=== PATIENT | male | born 1950 | race American Indian/Alaskan Native ===

== ENCOUNTER 2019-11-03 17:06 | Inpatient (IN) | payer MEDICARE, OTHER ==
[~2019-11-03 17:06] MED LIST: DOPamine/D5W 800 MG/250 ML DRIP IV ONE; EPINEPHrine 1 MG/10 ML SYRINGE ONE; LIDOCAINE PF 100 MG/5 ML (CARDIAC SYRINGE) IV ONE; LIDOCAINE/D5W 2 GM/500 ML (0.4%) DRIP IV ONE; SODIUM BICARB 8.4% 50 MEQ/50 ML SYRINGE IV ONE
[2019-11-03] MEDS: LIDOCAINE DRIP 2,000 MG/500 ML BAG IV SCH (17:11)
[2019-11-03] MEDS: DOPamine/D5W 800 MG/250 ML 800 MG/250 ML BAG IV SCH (17:20)
[2019-11-03] MEDS ORDERED: NORepinephrine/NS 4 MG-250 ML 4 MG/250 ML BAG IV ONE (17:28)
[2019-11-03] MEDS ORDERED: HEPARIN 10,000 UNITS/10 ML VIAL IV ONE (17:29)
[2019-11-03] MEDS ORDERED: ASPIRIN 300 MG RECT SUPP PR ONE (17:30)
[2019-11-03] MEDS: NORepinephrine/NS 4 MG-250 ML 4 MG/250 ML BAG IV SCH (17:32)
--- NOTE | 2019-11-03 17:43 | Emergency Department Report ---
HPI - General PUI?: No Time Seen by Provider: 11/03/19 17:28 - HPI HPI: Room 22 The patient is a 69-year-old male present with a chief complaint of cardiac arrest. Per the patient's the patient was found lying on the ground by his son. EMS was called immediately and bystander CPR initiated. EMS arrived on scene at 16:30 to find the patient in V. fib arrest. ACLS protocols were initiated. Patient was defibrillated multiple times administered epi, amiodarone 300 mg IV and intubated. EMS states that they had a brief return of spontaneous circulation however upon arrival to the ED the patient was again found in V. fib. ACLS protocols were continued with eventual return of spontaneous circulation. ED Past Medical Hx - Past Medical History Previous Medical History?: Yes Hx Hypertension: Yes Hx Heart Attack/AMI: Yes (2008. One stent placed) Additional medical history: Hyperlipidemia - Surgical History Additional Surgical History: Cardiac stent placement - Family History Family history: no significant - Social History Smoking Status: Unknown if ever smoked ED Review of Systems ROS: Stated complaint: CARDIAC ARREST Other details as noted in HPI Comment: Unobtainable due to pts medical conditions Physical Exam - Physical Exam Vital Signs: Vital Signs 11/03/19 17:28 Pulse Rate 96 H Respiratory 21 Rate O2 Sat by Pulse 96 Oximetry Physical Exam: GENERAL: The patient is well-developed well-nourished male lying on stretcher receiving chest compressions from EMS and being bagged via ET tube. [] HEENT: Normocephalic. Atraumatic. Pupils 3 mm and nonreactive bilaterally NECK: Supple. Trachea midline CHEST/LUNGS: No spontaneous respirations. Breath sounds greater on the right side upon arrival. ET tube pulled back to 24 at the lips and breath sounds equal bilaterally HEART/CARDIOVASCULAR: No heart sounds. ABDOMEN: Abdomen is soft SKIN: There is no rash. There is no edema. There is no diaphoresis. NEURO: GCS 3 T MUSCULOSKELETAL: There is no evidence of acute injury. ED Course Vital Signs 11/03/19 17:28 Pulse Rate 96 H Respiratory 21 Rate O2 Sat by Pulse 96 Oximetry - Consultations Consultation #1: 11/03/19 15:22 ED EKG sent to and discussed with Dr. Araya. Code STEMI called Consultation #2: 11/03/19 18:03 Hospitalist paged ED Medical Decision Making - Lab Data Result diagrams: 11/03/19 17:41 Laboratory Tests 11/03/19 11/03/19 11/03/19 17:41 17:41 17:41 WBC 6.6 RBC 5.58 H Hgb 14.8 Hct 50.0 H MCV 90 MCH 27 L MCHC 30 L RDW 18.2 H Plt Count 102 L 119 L Lymph % (Auto) Strategic Planning Director PT 16.3 H INR 1.30 H - EKG Data -: EKG Interpreted by Me EKG shows normal: sinus rhythm Rate: normal - EKG Data When compared to previous EKG there are: previous EKG unavailable Interpretation: acute [place] - Radiology Data Radiology results: report reviewed (Chest x-ray #1), image reviewed (Chest x-ray #1, chest x-ray #2) interpreted by me: Chest x-ray #1-ET tube right mainstem. No focal infiltrates, no pneumothorax Chest x-ray #2-ET tube in appropriate position Findings [facility] [address] [place] [address] XRay Report Signed Patient: GIULIANA LAM MR#: [id number] : 1950 Acct:[id number] Age/Sex: 69 / M ADM Date: 11/03/19 Loc: ED Attending Dr: Ordering Physician: FELIZ ACOSTA MD Date of Service: 11/03/19 Procedure(s): XR chest 1V ap Accession Number(s): [id number] cc: FELIZ ACOSTA MD Fluoro Time In Minutes: CHEST 1 VIEW INDICATION / CLINICAL INFORMATION: MAIN: chest pain/ETT. C OMPARISON: None available. FINDINGS: SUPPORT DEVICES: The endotracheal tube is at the level of the alireza and should be pulled back several centimeters. Nasogastric tube is in satisfactory. HEART / MEDIASTINUM: Mild enlargement of the cardiac mediastinal silhouette. Pulmonary vascularity is prominent in the upper lungs. LUNGS / PLEURA: No significant pulmonary or pleural abnormality. No pneumothorax. ADDITIONAL FINDINGS: No significant additional findings. IMPRESSION: 1. Low position of the endotracheal tube. 2. Cardiomegaly and pulmonary venous hypertension. Signer Name: Santo Toledo MD Signed: 11/03/2019 5:46 PM Workstation Name: [id number] Transcribed By: SC Dictated By: Santo Toledo MD Electronically Authenticated By: Santo Toeldo MD Signed Date/Time: 11/03/191745 DD/ 44 TD/TT: - Differential Diagnosis STEMI Critical Care Time: Yes Critical care time in (mins) excluding proc time.: 30 Critical care attestation.: If time is entered above; I have spent that time in minutes in the direct care of this critically ill patient, excluding procedure time. ED Disposition Clinical Impression: STEMI (ST elevation myocardial infarction) Disposition: DC-[id number] OP ADMIT IP TO THIS HOSP Is pt being admited?: Yes Does the pt Need Aspirin: Yes Condition: Critical Time of Disposition: 17:45 (Awaiting Commercial Food Instructor)
--- NOTE | 2019-11-03 17:50 | XRay Report ---
CHEST 1 VIEW INDICATION / CLINICAL INFORMATION: MAIN: chest pain/ETT. COMPARISON: None available. FINDINGS: SUPPORT DEVICES: The endotracheal tube is at the level of the alireza and should be pulled back severa l centimeters. Nasogastric tube is in satisfactory. HEART / MEDIASTINUM: Mild enlargement of the cardiac mediastinal silhouette. Pulmonary vascularity is prominent in the upper lungs. LUNGS / PLEURA: No significant pulmonary or pleural abnormality. No pneumothorax. ADDITIONAL FINDINGS: No significant additional findings. IMPRESSION: 1. Low position of the endotracheal tube. 2. Cardiomegaly and pulmonary venous hypertension. Signer Name: Santo Toledo MD Signed: 11/03/2019 5:46 PM Workstation Name: [id number]
[2019-11-03 17:51] LABS: Mean Corpuscular HGB Conc 30 % (32-34); Mean Corpuscular Volume 90 fl (84-94); Platelet Count 102 K/mm3 (140-440); Red Blood Count 5.58 M/mm3 (3.65-5.03); Red Cell Distribution Width 18.2 % (13.2-15.2)
[2019-11-03 17:56] LABS: Hemoglobin 14.8 gm/dl (11.8-15.2)
[2019-11-03] MEDS ORDERED: HEPARIN/ 0.45% NACL DRIP 25,000 UNIT/500 ML BAG IV SCH (18:00)
[2019-11-03 18:07] LABS: INR 1.3 (0.87-1.13)
[2019-11-03 18:08] LABS: ABG Base Excess -11.3 mmol/L (-2.0-3.0); ABG HCO3 21.3 mmol/L (20.0-26.0); ABG Methemoglobin 0.3 % (0.0-1.5); ABG Oxygen Saturation 97.4 % (95.0-99.0); ABG PCO2 83.8 mm Hg; ABG PO2 126.1 mm Hg (80.0-90.0)
[2019-11-03] MEDS ORDERED: HEPARIN/NS 5000 UNIT/500ML 500 ML IR ONE (18:08)
[2019-11-03] MEDS ORDERED: HEPARIN 10,000 UNITS/10 ML VIAL ONE (18:08)
[2019-11-03] MEDS ORDERED: VERAPAMIL 5 MG/2 ML INJ ONE (18:08)
[2019-11-03 18:09] LABS: Partial Thromboplastin Time 44.1 Sec. (24.2-36.6)
[2019-11-03] MEDS ORDERED: NITROGLYCERIN SYRINGE 0 ML ONE (18:09)
[2019-11-03] MEDS ORDERED: LIDOCAINE (2%) 20 MG/1 ML VIAL 20 ML MDV INFILTRATI ONE (18:09)
[2019-11-03 18:11] LABS: ABG PH 7.023 pH Units (7.350-7.450)
--- NOTE | 2019-11-03 18:11 | XRay Report ---
CHEST 1 VIEW INDICATION / CLINICAL INFORMATION: ET tube repositioned. COMPARISON: 11/03/2019 and 1719 hours FINDINGS: SUPPORT DEVICES: The endotracheal tube has been retracted and is now in satisfactory position. Nasogastric tube is in stomach HEART / MEDIASTINUM: No significant abnormality. LUNGS / PLEURA: There is now ill-defined opacity in the right upper lung, possibly due to aspiration. No pneumothorax. ADDITIONAL FINDINGS: No significant additional findings. IMPRESSION: 1. Right upper lobe opacity, possible aspiration pneumonitis. Signer Name: Santo Toledo MD Signed: 11/03/2019 6:06 PM Workstation Name: [id number]
[2019-11-03] MEDS ORDERED: fentaNYL 100 MCG/2 ML INJ ONE (18:15)
[2019-11-03] MEDS ORDERED: MIDAZOLAM 2 MG/2 ML INJ ONE (18:15)
[2019-11-03 18:19] LABS: Creatine Kinase MB 18.2 ng/mL (0.0-4.0)
[2019-11-03 18:20] LABS: Calcium 8.2 mg/dL (8.4-10.2)
--- NOTE | 2019-11-03 18:33 | History and Physical Report ---
History of Present Illness Chief complaint: I found him lying on the ground History of present illness: 69 YO Male with HTN, WI, CAD S/P Stent Placement, HLD presents to ED for evaluation. The patient is intubated and on ventilatory support at the time of my evaluation and is unable to provide history. Patient history provided by and son and daughter who are at the bedside during exam and interview. As per family, the patient was in his usual state of health today. The patient was walking around outside and was found lying on the ground by his son. EMS was notified while the family initiated CPR therapy. Upon arrival the patient was found to be in V. fib arrest. Patient initiated on ACLS protocol with brief return of perfusing rhythm. Patient was coded multiple times in route to the ER. Patient arrived to the emergency department in V. fib arrest. Patient initiated on ACLS protocol with return of perfusing rhythm. Patient found to have evidence of ST elevation WI, as well as acute respiratory failure which resulted in cardiopulmonary arrest. Patient also found to have acute kidney injury, and metabolic acidosis. Upon neurologic exam patient was found to have clinical findings consistent with anoxic brain injury. The cardiac cath team was called in. Family care planning conducted in ED. Patient elects not to have cardiac catheterization and requests only supportive care. The cardiac cath team was dismissed. The patient was admitted to ICU. Critical care team consult placed. Patient found to have poor prognosis. Patient family acknowledges prognosis and request supportive continue supportive care. Patient family acknowledges understanding and agreement with care plan. No prior admission for review. No medication listed at time of admission for reconciliation. Past History Past Medical History: acute [place], CAD, hypertension Past Surgical History: Other (Cardiac stent placement) Social history: , lives with family Family history: CAD, hypertension Medications and Allergies Allergies Allergy/AdvReac Type Severity Reaction Status Date / Time Unable to Assess Allergy Verified 11/03/19 19:16 Active Meds: Active Medications Heparin Sodium/Sodium Chloride (Heparin/ 0.45% Nacl-25,000 Unit/500 Ml) 25,000 unit in 500 mls @ 20 mls/hr IV TITRATE MAY; Protocol Last Admin: 11/03/19 17:56 Dose: 1,000 units/hr, 20 mls/hr Documented by: Sodium Chloride (Sodium Chloride Flush Syringe 10 Ml) 10 ml IV BID MAY Sodium Chloride (Sodium Chloride Flush Syringe 10 Ml) 10 ml IV PRN PRN PRN Reason: LINE FLUSH Review of Systems ROS unobtainable: due to endotracheal tube, due to mental status Exam - Constitutional Vitals: Temp Pulse Resp BP Pulse Ox 126 H 21 98/66 98 11/03/19 17:45 11/03/19 17:28 11/03/19 17:45 11/03/19 17:45 General appearance: Present: severe distress, obese - EENT Eyes: Present: irregular pupil, mydriasis ENT: hearing decreased - Respiratory Respiratory effort: labored Respiratory: bilateral: diminished - Cardiovascular Heart Sounds: Present: S1 & S2. Absent: rub, click - Extremities Extremity abnormal: edema Peripheral Pulses: within normal limits - Abdominal General gastrointestinal: Present: soft, non-tender, non-distended, normal bowel sounds Male genitourinary: Present: normal - Integumentary Integumentary: Present: clear, dry, clammy, decreased turgor - Musculoskeletal Musculoskeletal: generalized weakness - Psychiatric Psychiatric: no appropriate mood/affect, no intact judgment & insight, no memory intact - Neurologic Neurologic: no CNII-XII intact, no gait normal HEART Score - HEART Score Troponin: Troponin T 0.093 ng/mL (0.00-0.029) H 11/03/19 17:58 Results - Labs CBC & Chem 7: 11/03/19 17:41 11/03/19 17:58 Labs: Abnormal lab results 11/03/19 11/03/19 11/03/19 Range/Units 17:41 17:41 17:41 RBC 5.58 H (3.65-5.03) M/mm3 Hct 50.0 H (35.5-45.6) % MCH 27 L (28-32) pg MCHC 30 L (32-34) % RDW 18.2 H (13.2-15.2) % Plt Count 102 L 119 L (140-440) K/mm3 PT 16.3 H (12.2-14.9) Sec. INR 1.30 H (0.87-1.13) APTT 44.1 H (24.2-36.6) Sec. ABG pH (7.350-7.450) pH Units ABG pO2 (80.0-90.0) mm Hg ABG Base Excess (-2.0-3.0) mmol/L Sodium (137-145) mmol/L Carbon Dioxide (22-30) mmol/L Creatinine (0.8-1.5) mg/dL Glucose (75-100) mg/dL Calcium (8.4-10.2) mg/dL Total Creatine Kinase (55-170) units/L CK-MB (CK-2) (0.0-4.0) ng/mL Troponin T (0.00-0.029) ng/mL 11/03/19 11/03/19 Range/Units 17:58 18:05 RBC (3.65-5.03) M/mm3 Hct (35.5-45.6) % MCH (28-32) pg MCHC (32-34) % RDW (13.2-15.2) % Plt Count (140-440) K/mm3 PT (12.2-14.9) Sec. INR (0.87-1.13) APTT (24.2-36.6) Sec. ABG pH 7.023 L* (7.350-7.450) pH Units ABG pO2 126.1 H (80.0-90.0) mm Hg ABG Base Excess -11.3 L (-2.0-3.0) mmol/L Sodium 146 H (137-145) mmol/L Carbon Dioxide 18 L (22-30) mmol/L Creatinine 2.2 H (0.8-1.5) mg/dL Glucose 288 H (75-100) mg/dL Calcium 8.2 L (8.4-10.2) mg/dL Total Creatine Kinase 776 H (55-170) units/L CK-MB (CK-2) 18.2 H (0.0-4.0) ng/mL Troponin T 0.093 H (0.00-0.029) ng/mL Assessment and Plan - Patient Problems (1) Acute hypoxemic respiratory failure Current Visit: Yes Status: Acute Plan to address problem: Patient is intubated and on vent support. Wean vent as tolerated, spontaneous breathing trial daily, ABG in a.m., sedation holiday, critical care team consulted in ED. The high probability of a clinically significant, sudden or life threatening deterioration of the [cardiac, pulmonary, renal, neurologic] system(s) required my full and direct attention, intervention and personal management. The aggregate critical care time was [95] minutes. This time is in addition to time spent performing reported procedures but includes the following: [x] Data Review and interpretation [x] Patient assessment and monitoring of vital signs [x] Documentation [x] Medication orders and management (2) STEMI (ST elevation myocardial infarction) Current Visit: Yes Status: Acute Plan to address problem: Cardiology consult placed in ED. Patient was pending emergent cardiac catheterization. Patient experienced an additional cardiac arrest prior to transfer to [facility]. A family meeting was held with the patient's who elects to forego cardiac catheterization, but to continue current level of care. Risks and benefits of cardiac catheterization were explained to family. Patient determines that the risks of cardiac catheterization outweigh the risk. We will continue current critical care management. Cardiology team consulted in ED. continue therapeutic heparin (3) Cardiac arrest Current Visit: Yes Status: Acute Plan to address problem: Patient treated in accordance with ACLS protocol with return of perfusing cardiac rhythm. Pain recurrent patient currently maintained on IV pressor support (4) Anoxic brain injury Current Visit: Yes Status: Acute Plan to address problem: Suspected due to clinical findings on exam. Will conduct brain imaging when if/when patient is medically stable. (5) Acute kidney injury (WALTER) with acute tubular necrosis (ATN) Current Visit: Yes Status: Acute Plan to address problem: IV fluid resuscitation therapy, monitor urine output every shift, repeat BMP in a.m. (6) Metabolic acidosis Current Visit: Yes Status: Acute Plan to address problem: IV bicarbonate therapy, supportive care. Repeat BMP in a.m. (7) DVT prophylaxis Current Visit: Yes Status: Acute Plan to address problem: SCD to bilateral lower extremities while in bed, continue therapeutic heparin. (8) Advance care planning Current Visit: Yes Status: Acute Plan to address problem: Patient is full code, disease education conducted. Patient family acknowledges understanding poor prognosis and agrees with current care plan. Patient declines cardiac cath. Patient requests continued supportive care. Patient currently intubated and on IV pressor support. Patient request continuation of current level of support without further cardiac intervention.
--- NOTE | 2019-11-03 18:37 | Event Note ---
Date: 11/03/19 PT developed Cardiopulmonary arrest while I was at bedside. PT treated IAW ACLS protocol with return of perfusing cardiac rhythm. Pt has poor prognosis as the risk and benefit of cardiac cath has been discussed with patient and family. Pt elects to forego further cardiac intervention and declines cardiac cath. Pt family also in agreement.
[2019-11-03 19:21] LABS: RBC Morphology Normal; Total Cells Counted 100
[2019-11-03] MEDS ORDERED: SODIUM BICARB 8.4% 50 MEQ/50 ML SYRINGE IV ONE (19:49)
[2019-11-04] MEDS: DOPamine/D5W 800 MG/250 ML 800 MG/250 ML BAG IV SCH ×2 (00:09→08:43)
--- NOTE | 2019-11-04 00:47 | Consultation ---
CARDIOLOGY CONSULTATION Please refer this letter to Dr. Acevedo. HISTORY OF PRESENT ILLNESS: The patient is a 69-year-old -[place] gentleman with history of hypertension, history of coronary stenting in 2007 at this hospital and history of hyperlipidemia, being followed by a nursing educator at [facility], was doing well without any symptoms. This evening, the patient was in the yard by himself and he was found on the ground by his son, he does not know how long he was there. The patient was unresponsive and the son came, found him on the ground. Paramedics were called and prolonged CPR including defibrillation 5 times done. Subsequently, he was intubated, brought to the Emergency Room and his blood pressure initially on dopamine and Levophed was 80 systolic, sinus tachycardia. EKG showed the sinus rhythm with ST elevations in the anterior leads consistent with anterolateral myocardial infarction. The patient was intubated. He was unresponsive in the Emergency Room, not responsive to painful stimuli. Pupils are dilated. Blood pressure 80 systolic, with sinus tachycardia at 130 beats per minute. Subsequently, a STEMI protocol was followed and a STEMI team was called in. When I went there to see the patient along with Dr. Thomas, the patient's family was there, discussed with them, explained the diagnosis of probable acute myocardial infarction leading to his cardiac arrest and prolonged cardiopulmonary arrest with underlying hypoxemia and anoxia to the brain. Presently, the patient is not responding. At this time, his brain functional status is not clear. I also explained to them the diagnosis of myocardial infarction and I explained the diagnosis of probable anoxic encephalopathy considering his underlying prolonged CPR in addition to the patient being down for unknown time. The patient and family wanted conservative treatment. However, in the meantime before can be taken to the catheterization laboratory, the patient arrested again during the CPR. Because of his prolonged CPR, it was decided to treat the patient conservatively. I had a long discussion with multiple family members. Dr. Yony Thomas is with me. I and both explained in detail to the patient's multiple family members. They do not want any aggressive measures at this time. PHYSICAL EXAMINATION: GENERAL: Showed the patient to be intubated, dilated pupils. NECK: Supple. Difficult to evaluate JVD. HEART: Regular. LUNGS: Clear. ABDOMEN: Benign. EXTREMITIES: Warm. FINAL IMPRESSION: Status post prolonged cardiopulmonary arrest, probably secondary to the anterolateral myocardial infarction, had prolonged downtime prior to starting the CPR and also he had prolonged CPR. Considering prolonged nature of the CPR, the patient most likely has underlying hypoxic, anoxic encephalopathy. The patient is still having CPR done in the Emergency Room. The patient's family including and daughter, son and sister decided to do conservative management in the ICU if he survives. Hence, a STEMI protocol was discontinued. STEMI team was here and team was dismissed. Overall, prognosis is grave. Dr. Thomas is in charge of the CPR at this point. JOB# [id number] RON/KURT NOLAND
[2019-11-04] MEDS: NORepinephrine/NS 4 MG-250 ML 4 MG/250 ML BAG IV SCH ×2 (02:12→09:55)
[2019-11-04 05:32] LABS: ABG Base Excess -10.8 mmol/L (-2.0-3.0); ABG HCO3 14.4 mmol/L (20.0-26.0); ABG Methemoglobin 0.3 % (0.0-1.5); ABG Oxygen Saturation 99.2 % (95.0-99.0); ABG PCO2 31.2 mm Hg; ABG PH 7.281 pH Units (7.350-7.450); ABG PO2 202.2 mm Hg (80.0-90.0)
[2019-11-04 05:58] LABS: Hematocrit 58.4 % (35.5-45.6); Hemoglobin 18.5 gm/dl (11.8-15.2); Mean Corpuscular HGB Conc 32 % (32-34); Mean Corpuscular Volume 83 fl (84-94); Platelet Count 191 K/mm3 (140-440); Red Blood Count 7.04 M/mm3 (3.65-5.03); Red Cell Distribution Width 17.3 % (13.2-15.2)
[2019-11-04 06:13] LABS: Alanine Aminotransferase 444 units/L (7-56); Albumin 4.4 g/dL (3.9-5); BUN/Creatinine Ratio 6; Blood Urea Nitrogen 28 mg/dL (9-20); Calcium 8.9 mg/dL (8.4-10.2)
--- NOTE | 2019-11-04 06:22 | XRay Report ---
ABDOMEN 1 VIEW(S) INDICATION / CLINICAL INFORMATION: Evaluation for possible GI bleed.. Pain COMPARISON: None available. FINDINGS: TUBES / LINES: Right femoral line noted.. BOWEL GAS PATTERN: No significant abnormality. FREE AIR / EXTRALUMINAL GAS: None seen. ADDITIONAL FINDINGS: No significant additional findings. IMPRESSION: 1. No significant abnormality. Signer Name: Von Huang MD Signed: 11/04/2019 6:17 AM Workstation Name: [id number]
--- NOTE | 2019-11-04 06:25 | XRay Report ---
CHEST 1 VIEW INDICATION / CLINICAL INFORMATION: Respirator Failure. COMPARISON: None available. FINDINGS: SUPPORT DEVICES: No significant change in position. HEART / MEDIASTINUM: The cardiomediastinal silhouette has not significantly changed in the interim. LUNGS / PLEURA: No significant pulmonary or pleural abnormality. No pneumothorax. Signer Name: Von Huang MD Signed: 11/04/2019 6:20 AM Workstation Name: [id number]
[2019-11-04] MEDS ORDERED: PANTOPRAZOLE 40 MG INJ IV NR (06:38)
[2019-11-04] MEDS: SODIUM CHLORIDE 0.9% 1000 ML 1,000 ML IV SCH ×2 (06:43→11:04)
[2019-11-04] MEDS ORDERED: SODIUM CHLORIDE 0.9% 1000 ML 500 ML IV ONE (07:30)
[2019-11-04] MEDS: LIDOCAINE DRIP 2,000 MG/500 ML BAG IV SCH (09:09)
--- NOTE | 2019-11-04 09:14 | Consultation ---
History of Present Illness Consult date: 11/04/19 Requesting physician: CRUZ LENNON History of present illness: HISTORY PER MEDICAL RECORDS DOCUMENTATION- ORALLY INTUBATED ON MVS, UNABLE TO PROVIDE A HISTORY 69 YO Male with HTN, NM, CAD S/P Stent Placement, HLD presents to ED for evaluation. The patient is intubated and on ventilatory support at the time of my evaluation and is unable to provide history. Patient history provided by and son and daughter who are at the bedside during exam and interview. As per family, the patient was in his usual state of health today. The patient was walking around outside and was found lying on the ground by his son. EMS was notified while the family initiated CPR therapy. Upon arrival the patient was found to be in V. fib arrest. Patient initiated on ACLS protocol with brief return of perfusing rhythm. Patient was coded multiple times in route to the ER. Patient arrived to the emergency department in V. fib arrest. Patient in itiated on ACLS protocol with return of perfusing rhythm. Patient found to have evidence of ST elevation [place], as well as acute respiratory failure which resulted in cardiopulmonary arrest. Patient also found to have acute kidney injury, and metabolic acidosis. Upon neurologic exam patient was found to have clinical findings consistent with anoxic brain injury. The cardiac cath team was called in. Family care planning conducted in ED. Patient elects not to have cardiac catheterization and requests only supportive care. The cardiac cath team was dismissed. The patient was admitted to ICU. Critical care team consult placed. Patient was seen and examined. Vitals, labs, medications, chart and imaging reviewed. Orally intubated on multiple infusions Dopamine at 20mcg, Norepinephrine at 30mcg, Lidocaine at 2. Coffee ground output from the NGT, apparently had bright red blood pe rectum heparin infusion was stopped. Anuric, Das catheter in place ACVC 24/450/8/40% ABG 7.3/30/202/14 Past History Past Medical History: acute NM, CAD, hypertension Past Surgical History: Other (Cardiac stent placement) Social history: , lives with family Family history: CAD, hypertension Medications and Allergies Allergies Allergy/AdvReac Type Severity Reaction Status Date / Time Unable to Assess Allergy Verified 11/03/19 19:16 Active Meds: Active Medications Heparin Sodium/Sodium Chloride (Heparin/ 0.45% Nacl-25,000 Unit/500 Ml) 25,000 unit in 500 mls @ 20 mls/hr IV TITRATE MAY; Protocol Last Titration: 11/04/19 05:20 Dose: 0 units/hr, 0 mls/hr Documented by: Dopamine HCl/Dextrose (Intropin Drip 800 Mg/D5w 250 Ml) 800 mg in 250 mls @ 17.813 mls/hr IV TITR MAY; Protocol Last Admin: 11/04/19 08:43 Dose: 20 mcg/kg/min, 35.625 mls/hr Documented by: Lidocaine HCl/Dextrose (Xylocaine/D5w 2gm/500ml Drip) 2,000 mg in 500 mls @ 30 mls/hr IV DIRECT MAY; Protocol Last Admin: 11/04/19 09:09 Dose: 2 mg/min, 30 mls/hr Documented by: Norepinephrine (Levophed Drip 4 Mg/Ns 250 Ml) 4 mg in 250 mls @ 22.5 mls/hr IV TITR MAY; Protocol Last Titration: 11/04/19 09:00 Dose: 20 mcg/min, 75 mls/hr Documented by: Sodium Chloride (Nacl 0.9% 1000 Ml) 1,000 mls @ 125 mls/hr IV DIRECT MAY Last Admin: 11/04/19 06:43 Dose: 125 mls/hr Documented by: Sodium Chloride (Sodium Chloride Flush Syringe 10 Ml) 10 ml IV BID MAY Sodium Chloride (Sodium Chloride Flush Syringe 10 Ml) 10 ml IV PRN PRN PRN Reason: LINE FLUSH Review of Systems ROS unobtainable: due to endotracheal tube, due to mental status Physical Examination Vital signs: Vital Signs Pulse BP Pulse Ox 94 H 84/45 97 11/03/19 17:22 11/03/19 17:22 11/03/19 17:22 General appearance: comatose, other (orally intubated ETT at 23cm at the lip, unresponsive) Eyes: non-icteric, other ([i) ENT: oropharynx dry Neck: supple, no lymphadenopathy, no JVD Effort: other (breathing at the set rate) Ascultation: Bilateral: diminished breath sounds, rhonchi Cardiovascular: regular rate and rhythm, other (S1,S2) Gastrointestinal: normoactive bowel sounds, soft, non-tender, non-distended, other (rectal tube with pink liquid, NGT coffee ground ) Integumentary: normal Extremities: no cyanosis, no edema, pulses normal unable to assess, other (unresponsive) other (unresponsive) Results - Laboratory Findings CBC and BMP: 11/04/19 05:30 11/03/19 17:58 ABG ABG pH 7.281 pH Units (7.350-7.450) L 11/04/19 05:15 ABG pCO2 31.2 mm Hg 11/04/19 05:15 ABG pO2 202.2 mm Hg (80.0-90.0) H 11/04/19 05:15 ABG O2 Saturation 99.2 % (95.0-99.0) H 11/04/19 05:15 PT/INR, D-dimer PT 16.3 Sec. (12.2-14.9) H 11/03/19 17:41 INR 1.30 (0.87-1.13) H 11/03/19 17:41 Abnormal lab findings: Abnormal Labs 11/03/19 11/03/19 11/03/19 17:41 17:41 17:41 WBC RBC 5.58 H Hgb Hct 50.0 H MCV MCH 27 L MCHC 30 L RDW 18.2 H Plt Count 102 L 119 L Seg Neuts % (Manual) 37.0 L Lymphocytes % (Manual) 56.0 H PT 16.3 H INR 1.30 H APTT 44.1 H Heparin Anti-Xa Level ABG pH ABG pO2 ABG HCO3 ABG O2 Saturation ABG Base Excess ABG Hemoglobin Sodium Carbon Dioxide BUN Creatinine Glucose POC Glucose Calcium AST ALT Total Creatine Kinase CK-MB (CK-2) Troponin T 11/03/19 11/03/19 11/03/19 17:58 18:05 23:35 WBC RBC Hgb Hct MCV MCH MCHC RDW Plt Count Seg Neuts % (Manual) Lymphocytes % (Manual) PT INR APTT Heparin Anti-Xa Level ABG pH 7.023 L* ABG pO2 126.1 H ABG HCO3 ABG O2 Saturation ABG Base Excess -11.3 L ABG Hemoglobin Sodium 146 H Carbon Dioxide 18 L BUN Creatinine 2.2 H Glucose 288 H POC Glucose 110 H Calcium 8.2 L AST ALT Total Creatine Kinase 776 H CK-MB (CK-2) 18.2 H Troponin T 0.093 H 11/04/19 11/04/19 11/04/19 00:40 05:15 05:30 WBC 16.2 H RBC 7.04 H Hgb 18.5 H D Hct 58.4 H D MCV 83 L MCH 26 L MCHC RDW 17.3 H Plt Count Seg Neuts % (Manual) Lymphocytes % (Manual) PT INR APTT Heparin Anti-Xa Level 0.23 L ABG pH 7.281 L ABG pO2 202.2 H ABG HCO3 14.4 L ABG O2 Saturation 99.2 H ABG Base Excess -10.8 L ABG Hemoglobin 18.2 H Sodium Carbon Dioxide BUN Creatinine Glucose POC Glucose Calcium AST ALT Total Creatine Kinase CK-MB (CK-2) Troponin T 11/04/19 05:30 WBC RBC Hgb Hct MCV MCH MCHC RDW Plt Count Seg Neuts % (Manual) Lymphocytes % (Manual) PT INR APTT Heparin Anti-Xa Level ABG pH ABG pO2 ABG HCO3 ABG O2 Saturation ABG Base Excess ABG Hemoglobin Sodium Carbon Dioxide 19 L BUN 28 H Creatinine 4.8 H D Glucose 144 H POC Glucose Calcium AST 883 H ALT 444 H Total Creatine Kinase CK-MB (CK-2) Troponin T - Diagnostic Findings Chest x-ray: image reviewed (ETT in good position, Cardiomegaly with realtively clear lung arboleda) Assessment and Plan S/p OOH Cardiopulmonary arrest with ROSC Vfib arrest Acute hypoxemic respiratory failure on MVS Acute toxic-metabolic- ?anoxic injury STEMI Acute GIB- upper and lower Severe metabolic acidosis/lactic acidosis Acute kidney injury- vasomotor nephropathy, ATN Hypernatremia Recommendations - continue Dopamine, Levophed for target MAP > 65 mmHg , add vasopressin and epinephrine to keep MAP >65 -adjust minute ventilation for better gas exchange- increased RR to 30 at the bedside -ABG in an hour -Place arterial-line - continue to wean supplemental oxygen for target O2 sats > 90% -Hold all sedation for proper evaluation of neurologic function post cardiac arrest - Daily SAT's and SBT assessment per protocol - VAP bundle addressed - continue lung protective strategies - continue bronchodilators with pulmonary hygiene per RT - accuchecks with glycemic control per SSI (While critically ill target blood glucose of 140-180 mg/dL; avoid hypoglycemia) - Avoid benzodiazepines, reduce the possibility of delirium - prn analgesia per CPOT score - Maintenance of sleep-wake cycle, avoid delirium -Remain NPO for now, has ongoing coffee ground NGT output -Star therapeutic PPI, adjust for renal function - VTE prophylaxis-SCDs, heparin infusion on hold, patient had GIB -Medical management of NSTEMI, per family preference - Mobility protocol, off loading and skin assessment for pressure ulcer prevent ion - Monitor hemodynamics closely -Das catheter in this critically ill patient with acute renal failure/anuria -Has a femoral triple lumen catheter. -Patient would have benefitted from hypothermia protocol post arrest -Neurology consult, defer primary service -Cardioprotective measures and management of STEMI per Cardiology service -Get transthoracic echocardiogram - continue other care per attending / other consultants Discussed with the , who wants me to reach out to his Storekeeper Helper, Dr. Jefferson Arguelles to help her make decisions on goals of care Called Dr. Arguelles [phone]. He will return my call Discussed with hospitalist service CONDITION: CRITICAL PROGNOSIS: GUARDED-POOR CODE STATUS: FULL CODE The high probability of a clinically significant, sudden or life-threatening deterioration of the [respiratory & cardiovascular] system(s) required my full and direct attention, intervention and personal management. The aggregate critical care time was [35] minutes without overlap. Time includes spent on; [x] Data Review and interpretation [x] Patient assessment and monitoring of vital signs [x] Documentation [x] Medication orders and management
--- NOTE | 2019-11-04 09:30 | Gastroenterology Consultation ---
History of Present Illness - Reason for Consult Consult date: 11/04/19 GI Bleed Requesting physician: AILEEN FISHER - History of Present Illness History obtained from chart as patient is unable to provide a history. I additionally tried calling the patient's spouse at the number listed, , however just rang and went to voicemail 69 YO Male with HTN, TX, CAD S/P Stent Placement, HLD presented to the emergency room after he was found lying on the ground by his son. EMS was notified while the family initiated CPR therapy. Upon arrival the patient was found to be in V. fib arrest. Patient initiated on ACLS protocol with brief return of perfusing rhythm. Patient was coded multiple times in route to the ER. Patient arrived to the emergency department in V. fib arrest. Patient initiated on ACLS protocol with return of perfusing rhythm. Patient found to have evidence of ST elevation [place], as well as acute respiratory failure which resulted in cardiopulmonary arrest. Patient also found to have acute kidney injury, and metabolic acidosis. Upon neurologic exam patient was found to have clinical findings consistent with anoxic brain injury. The cardiac cath team was called in. Family care planning conducted in ED. Patient elects not to have cardiac catheterization and requests only supportive care. The cardiac cath team was dismissed. The patient was admitted to ICU. Critical care team consult placed. Patient found to have poor prognosis. Patient was started on a heparin drip Patient had coffee grounds from his NG tube and dark red blood from his rectal output per nursing overnight, occult blood was positive. Heparin drip was stopped. Patient currently with thin red liquid from the rectal tube and brown output from the NG tube with no significant active bleeding Repeat CBC this morning shows elevated hemoglobin compared to presentation unclear if artifactual or hemoconcentration Remainder of GI history unknown Obtained/updated/reviewed patient's current medications with the limitations of patient unable to provide a history and unable to contact Past History Past Medical History: acute [place], CAD, hypertension Past Surgical History: Other (Cardiac stent placement) Social history: , lives with family Family history: CAD, hypertension Medications and Allergies Allergies Allergy/AdvReac Type Severity Reaction Status Date / Time Unable to Assess Allergy Verified 11/03/19 19:16 Active Meds: Active Medications Heparin Sodium/Sodium Chloride (Heparin/ 0.45% Nacl-25,000 Unit/500 Ml) 25,000 unit in 500 mls @ 20 mls/hr IV TITRATE MAY; Protocol Last Titration: 11/04/19 05:20 Dose: 0 units/hr, 0 mls/hr Documented by: Dopamine HCl/Dextrose (Intropin Drip 800 Mg/D5w 250 Ml) 800 mg in 250 mls @ 17.813 mls/hr IV TITR MAY; Protocol Last Admin: 11/04/19 08:43 Dose: 20 mcg/kg/min, 35.625 mls/hr Documented by: Lidocaine HCl/Dextrose (Xylocaine/D5w 2gm/500ml Drip) 2,000 mg in 500 mls @ 30 mls/hr IV DIRECT MAY; Protocol Last Admin: 11/04/19 09:09 Dose: 2 mg/min, 30 mls/hr Documented by: Norepinephrine (Levophed Drip 4 Mg/Ns 250 Ml) 4 mg in 250 mls @ 22.5 mls/hr IV TITR MAY; Protocol Last Titration: 11/04/19 09:15 Dose: 22 mcg/min, 82.5 mls/hr Documented by: Sodium Chloride (Nacl 0.9% 1000 Ml) 1,000 mls @ 125 mls/hr IV DIRECT MAY Last Admin: 11/04/19 06:43 Dose: 125 mls/hr Documented by: Sodium Chloride (Sodium Chloride Flush Syringe 10 Ml) 10 ml IV BID MAY Sodium Chloride (Sodium Chloride Flush Syringe 10 Ml) 10 ml IV PRN PRN PRN Reason: LINE FLUSH Review of Systems - Review of Systems ROS unobtainable: due to endotracheal tube, due to mental status Exam - Constitutional Vital Signs: Temp Pulse Resp BP Pulse Ox 99.4 F 110 H 24 76/56 96 11/04/19 08:00 11/04/19 08:00 11/04/19 08:00 11/04/19 08:00 11/04/19 08:00 General appearance: other (Intubated and unresponsive) - EENT Eyes: other - Respiratory Respiratory effort: other (Intubated, bilateral breath sounds) - Cardiovascular Heart Sounds: Present: S1 & S2 - Gastrointestinal General gastrointestinal: Present: soft - Musculoskeletal Musculoskeletal: normal - Neurologic Neurological: other (Unresponsive) - Psychiatric Psychiatric: other - Additional findings Additional findings: Unresponsive - Labs CBC & Chem 7: 11/04/19 05:30 11/03/19 17:58 Lab Results: Laboratory Results - last 24 hr 11/03/19 11/03/19 11/03/19 17:41 17:41 17:41 WBC 6.6 RBC 5.58 H Hgb 14.8 Hct 50.0 H MCV 90 MCH 27 L MCHC 30 L RDW 18.2 H Plt Count 102 L 119 L Lymph % (Auto) Nanny/Household Manager Add Manual Diff Complete Total Counted 100 Seg Neuts % (Manual) 37.0 L Band Neutrophils % 0 Lymphocytes % (Manual) 56.0 H Reactive Lymphs % (Man) 0 Monocytes % (Manual) 5.0 Eosinophils % (Manual) 1.0 Basophils % (Manual) 1.0 Metamyelocytes % 0 Myelocytes % 0 Promyelocytes % 0 Blast Cells % 0 Nucleated RBC % Not Reportable Seg Neutrophils # Man 2.4 Band Neutrophils # 0.0 Lymphocytes # (Manual) 3.7 Abs React Lymphs (Man) 0.0 Monocytes # (Manual) 0.3 Eosinophils # (Manual) 0.1 Basophils # (Manual) 0.1 Metamyelocytes # 0.0 Myelocytes # 0.0 Promyelocytes # 0.0 Blast Cells # 0.0 WBC Morphology Not Reportable Hypersegmented Neuts Not Reportable Hyposegmented Neuts Not Reportable Hypogranular Neuts Not Reportable Smudge Cells Not Reportable Toxic Granulation Not Reportable Toxic Vacuolation Not Reportable Dohle Bodies Not Reportable Pelger-Huet Anomaly Not Reportable Pedrito Rods Not Reportable Platelet Estimate Not Reportable Clumped Platelets Not Reportable Plt Clumps, EDTA Not Reportable Large Platelets Not Reportable Giant Platelets Not Reportable Platelet Satelliting Not Reportable Plt Morphology Comment Not Reportable RBC Morphology Normal Dimorphic RBCs Not Reportable Polychromasia Not Reportable Hypochromasia Not Reportable Poikilocytosis Not Reportable Anisocytosis Not Reportable Microcytosis Not Reportable Macrocytosis Not Reportable Spherocytes Not Reportable Pappenheimer Bodies Not Reportable Sickle Cells Not Reportable Target Cells Not Reportable Tear Drop Cells Not Reportable Ovalocytes Not Reportable Helmet Cells Not Reportable Valero-Alcolu Bodies Not Reportable Creighton Rings Not Reportable Lasha Cells Not Reportable Bite Cells Not Reportable Crenated Cell Not Reportable Elliptocytes Not Reportable Acanthocytes (Spur) Not Reportable Rouleaux Not Reportable Hemoglobin C Crystals Not Reportable Schistocytes Not Reportable Malaria parasites Not Reportable Pedro Bodies Not Reportable Hem Pathologist Commnt No PT 16.3 H INR 1.30 H APTT 44.1 H Heparin Anti-Xa Level ABG pH ABG pCO2 ABG pO2 ABG HCO3 ABG O2 Saturation ABG O2 Content ABG Base Excess ABG Hemoglobin ABG Carboxyhemoglobin ABG Methemoglobin Oxyhemoglobin FiO2 Sodium Potassium Chloride Carbon Dioxide Anion Gap BUN Creatinine Estimated GFR BUN/Creatinine Ratio Glucose POC Glucose Calcium Total Bilirubin AST ALT Alkaline Phosphatase Total Creatine Kinase CK-MB (CK-2) CK-MB (CK-2) Rel Index Troponin T NT-Pro-B Natriuret Pep Total Protein Albumin Albumin/Globulin Ratio Blood Type Antibody Screen 11/03/19 11/03/19 11/03/19 17:58 18:05 23:35 WBC RBC Hgb Hct MCV MCH MCHC RDW Plt Count Lymph % (Auto) Add Manual Diff Total Counted Seg Neuts % (Manual) Band Neutrophils % Lymphocytes % (Manual) Reactive Lymphs % (Man) Monocytes % (Manual) Eosinophils % (Manual) Basophils % (Manual) Metamyelocytes % Myelocytes % Promyelocytes % Blast Cells % Nucleated RBC % Seg Neutrophils # Man Band Neutrophils # Lymphocytes # (Manual) Abs React Lymphs (Man) Monocytes # (Manual) Eosinophils # (Manual) Basophils # (Manual) Metamyelocytes # Myelocytes # Promyelocytes # Blast Cells # WBC Morphology Hypersegmented Neuts Hyposegmented Neuts Hypogranular Neuts Smudge Cells Toxic Granulation Toxic Vacuolation Dohle Bodies Pelger-Huet Anomaly Pedrito Rods Platelet Estimate Clumped Platelets Plt Clumps, EDTA Large Platelets Giant Platelets Platelet Satelliting Plt Morphology Comment RBC Morphology Dimorphic RBCs Polychromasia Hypochromasia Poikilocytosis Anisocytosis Microcytosis Macrocytosis Spherocytes Pappenheimer Bodies Sickle Cells Target Cells Tear Drop Cells Ovalocytes Helmet Cells Valero-Alcolu Bodies Creighton Rings Lasha Cells Bite Cells Crenated Cell Elliptocytes Acanthocytes (Spur) Rouleaux Hemoglobin C Crystals Schistocytes Malaria parasites Pedro Bodies Hem Pathologist Commnt PT INR APTT Heparin Anti-Xa Level ABG pH 7.023 L* ABG pCO2 83.8 ABG pO2 126.1 H ABG HCO3 21.3 ABG O2 Saturation 97.4 ABG O2 Content 19.7 ABG Base Excess -11.3 L ABG Hemoglobin 14.6 ABG Carboxyhemoglobin 2.1 ABG Methemoglobin 0.3 Oxyhemoglobin 95.1 FiO2 100 Sodium 146 H Potassium 5.0 Chloride 101.8 Carbon Dioxide 18 L Anion Gap 31 BUN 16 Creatinine 2.2 H Estimated GFR 36 BUN/Creatinine Ratio 7 Glucose 288 H POC Glucose 110 H Calcium 8.2 L Total Bilirubin AST ALT Alkaline Phosphatase Total Creatine Kinase 776 H CK-MB (CK-2) 18.2 H CK-MB (CK-2) Rel Index 2.3 Troponin T 0.093 H NT-Pro-B Natriuret Pep 544.0 Total Protein Albumin Albumin/Globulin Ratio Blood Type Antibody Screen 11/04/19 11/04/19 11/04/19 00:40 05:15 05:30 WBC 16.2 H RBC 7.04 H Hgb 18.5 H D Hct 58.4 H D MCV 83 L MCH 26 L MCHC 32 RDW 17.3 H Plt Count 191 Lymph % (Auto) Add Manual Diff Total Counted Seg Neuts % (Manual) Band Neutrophils % Lymphocytes % (Manual) Reactive Lymphs % (Man) Monocytes % (Manual) Eosinophils % (Manual) Basophils % (Manual) Metamyelocytes % Myelocytes % Promyelocytes % Blast Cells % Nucleated RBC % Seg Neutrophils # Man Band Neutrophils # Lymphocytes # (Manual) Abs React Lymphs (Man) Monocytes # (Manual) Eosinophils # (Manual) Basophils # (Manual) Metamyelocytes # Myelocytes # Promyelocytes # Blast Cells # WBC Morphology Hypersegmented Neuts Hyposegmented Neuts Hypogranular Neuts Smudge Cells Toxic Granulation Toxic Vacuolation Dohle Bodies Pelger-Huet Anomaly Pedrito Rods Platelet Estimate Clumped Platelets Plt Clumps, EDTA Large Platelets Giant Platelets Platelet Satelliting Plt Morphology Comment RBC Morphology Dimorphic RBCs Polychromasia Hypochromasia Poikilocytosis Anisocytosis Microcytosis Macrocytosis Spherocytes Pappenheimer Bodies Sickle Cells Target Cells Tear Drop Cells Ovalocytes Helmet Cells Valero-Alcolu Bodies Creighton Rings Lasha Cells Bite Cells Crenated Cell Elliptocytes Acanthocytes (Spur) Rouleaux Hemoglobin C Crystals Schistocytes Malaria parasites Pedro Bodies Hem Pathologist Commnt PT INR APTT Heparin Anti-Xa Level 0.23 L ABG pH 7.281 L ABG pCO2 31.2 ABG pO2 202.2 H ABG HCO3 14.4 L ABG O2 Saturation 99.2 H ABG O2 Content 25.2 ABG Base Excess -10.8 L ABG Hemoglobin 18.2 H ABG Carboxyhemoglobin 2.0 ABG Methemoglobin 0.3 Oxyhemoglobin 96.9 FiO2 60 Sodium Potassium Chloride Carbon Dioxide Anion Gap BUN Creatinine Estimated GFR BUN/Creatinine Ratio Glucose POC Glucose Calcium Total Bilirubin AST ALT Alkaline Phosphatase Total Creatine Kinase CK-MB (CK-2) CK-MB (CK-2) Rel Index Troponin T NT-Pro-B Natriuret Pep Total Protein Albumin Albumin/Globulin Ratio Blood Type Antibody Screen 11/04/19 11/04/19 05:30 06:15 WBC RBC Hgb Hct MCV MCH MCHC RDW Plt Count Lymph % (Auto) Add Manual Diff Total Counted Seg Neuts % (Manual) Band Neutrophils % Lymphocytes % (Manual) Reactive Lymphs % (Man) Monocytes % (Manual) Eosinophils % (Manual) Basophils % (Manual) Metamyelocytes % Myelocytes % Promyelocytes % Blast Cells % Nucleated RBC % Seg Neutrophils # Man Band Neutrophils # Lymphocytes # (Manual) Abs React Lymphs (Man) Monocytes # (Manual) Eosinophils # (Manual) Basophils # (Manual) Metamyelocytes # Myelocytes # Promyelocytes # Blast Cells # WBC Morphology Hypersegmented Neuts Hyposegmented Neuts Hypogranular Neuts Smudge Cells Toxic Granulation Toxic Vacuolation Dohle Bodies Pelger-Huet Anomaly Pedrito Rods Platelet Estimate Clumped Platelets Plt Clumps, EDTA Large Platelets Giant Platelets Platelet Satelliting Plt Morphology Comment RBC Morphology Dimorphic RBCs Polychromasia Hypochromasia Poikilocytosis Anisocytosis Microcytosis Macrocytosis Spherocytes Pappenheimer Bodies Sickle Cells Target Cells Tear Drop Cells Ovalocytes Helmet Cells Valero-Alcolu Bodies Creighton Rings Lasha Cells Bite Cells Crenated Cell Elliptocytes Acanthocytes (Spur) Rouleaux Hemoglobin C Crystals Schistocytes Malaria parasites Pedro Bodies Hem Pathologist Commnt PT INR APTT Heparin Anti-Xa Level ABG pH ABG pCO2 ABG pO2 ABG HCO3 ABG O2 Saturation ABG O2 Content ABG Base Excess ABG Hemoglobin ABG Carboxyhemoglobin ABG Methemoglobin Oxyhemoglobin FiO2 Sodium 145 Potassium 4.4 Chloride 101.1 Carbon Dioxide 19 L Anion Gap 29 BUN 28 H Creatinine 4.8 H D Estimated GFR 15 BUN/Creatinine Ratio 6 Glucose 144 H POC Glucose Calcium 8.9 Total Bilirubin 0.90 AST 883 H ALT 444 H Alkaline Phosphatase 82 Total Creatine Kinase CK-MB (CK-2) CK-MB (CK-2) Rel Index Troponin T NT-Pro-B Natriuret Pep Total Protein 6.9 Albumin 4.4 Albumin/Globulin Ratio 1.8 Blood Type O POSITIVE Antibody Screen Negative Assessment and Plan Patient currently hypotensive despite being on multiple pressors, with suspected anoxic brain injury and multiorgan failure. With the heparin held he is not having significant GI bleeding. Therefore, given patient is at extreme risk for complication and/or from a endoscopic procedure and he is not actively bleeding out, risks of endoscopic intervention outweighs the benefits. Therefore, I recommend starting patient on a proton pump inhibitor as he likely has an upper GI source given the reported coffee grounds in the NG tube Lower GI sources in the differential diagnosis as well however. Therefore, regarding anticoagulation, and less he is very high risk to be off of anticoagulation I would recommend continuing to hold anticoagulation and monitoring clinically Overall prognosis appears to be extremely limited - Patient Problems (1) GI bleed Current Visit: Yes Status: Acute (2) Anoxic brain injury Current Visit: Yes Status: Acute (3) Cardiac arrest Current Visit: Yes Status: Acute
[2019-11-04] MEDS ORDERED: PANTOPRAZOLE 40 MG INJ IV SCH (10:00)
[2019-11-04] MEDS ORDERED: VASOPRESSIN 20 UNIT in SODIUM CHLORIDE 0.9% 100 ML IV SCH (10:00)
--- NOTE | 2019-11-04 10:00 | Consultation ---
History of Present Illness - Reason for Consult Consult date: 11/04/19 acute renal failure - History of Present Illness This is a 69 year old male patient with pmh significant for hypertension, IN, CAD s/p stent placement, hyperlipidemia who presented to the ED via EMS after being found on the ground by his son at home. Prior to the incident, pt was in his usual state of health. It is unknown how long pt was down prior to discovery. Per ED notes, pt was found to be unresponsive and family members initiated CPR until EMS arrival. Upon arrival, EMS found pt to be in V. Fib arrest but had brief return of perfusing rhythm after ACL. Unfortunately patient coded multiple times while en route to the ED and was again in V. fib upon arrival to the ED. He was found to have evidence of STEMI, acute kidney injury, acute respiratory failure resulting in cardiac arrest, metabolic acidosis. Pt had neuro exam with findings consistent with anoxic brain injury. He was intubated and found to have very poor prognosis. Pt declined cardiac cath and understood prognosis and plan of care as reported by primary team. He was placed on heparin drip but began actively bleeding as evidenced by coffee ground in NG tube and dark red blood from rectal output. Heparin drip was stopped and pt no longer had any evidence of significant active bleeding. GI was consulted for bleed and pt started on PPI. At time of consultation he remains unresponsive and intubated. In addition, pt has had persistent hypotension and at time of exam was on three pressors. Labs on admission significant for sodium 146, bicarb 18, creatinine 2.2, glucose 288, calcium 8.2, total CK 776, troponin 0.093. At time of consultation, labs significant for bicarb 19, BUN 28, creatinine 4.8, glucose 144, AST 883, ALT 444. Nephrology was consulted for further evaluation and treatment. Past History Past Medical History: acute IN, CAD, hypertension Past Surgical History: Other (Cardiac stent placement) Social history: , lives with family Family history: CAD, hypertension Medications and Allergies Allergies Allergy/AdvReac Type Severity Reaction Status Date / Time Unable to Assess Allergy Verified 11/03/19 19:16 Home Medications Medication Instructions Recorded Confirmed Last Taken Type Aspirin EC [Halfprin EC] 81 mg PO QDAY 11/04/19 11/04/19 11/02/19 21:00 History Nitroglycerin [Nitrostat] 0.4 mg SL Q5M PRN 11/04/19 11/04/19 Unknown History Rosuvastatin Calcium [Crestor] 20 mg PO DAILY 11/04/19 11/04/19 11/02/19 19:00 History lisinopriL [Zestril] 20 mg PO QDAY 11/04/19 11/04/19 11/02/19 21:00 History Active Meds: Active Medications Heparin Sodium/Sodium Chloride (Heparin/ 0.45% Nacl-25,000 Unit/500 Ml) 25,000 unit in 500 mls @ 20 mls/hr IV TITRATE MAY; Protocol Last Titration: 11/04/19 05:20 Dose: 0 units/hr, 0 mls/hr Documented by: Dopamine HCl/Dextrose (Intropin Drip 800 Mg/D5w 250 Ml) 800 mg in 250 mls @ 17.813 mls/hr IV TITR MAY; Protocol Last Admin: 11/04/19 08:43 Dose: 20 mcg/kg/min, 35.625 mls/hr Documented by: Lidocaine HCl/Dextrose (Xylocaine/D5w 2gm/500ml Drip) 2,000 mg in 500 mls @ 30 mls/hr IV DIRECT MAY; Protocol Last Admin: 11/04/19 09:09 Dose: 2 mg/min, 30 mls/hr Documented by: Norepinephrine (Levophed Drip 4 Mg/Ns 250 Ml) 4 mg in 250 mls @ 22.5 mls/hr IV TITR MAY; Protocol Last Titration: 11/04/19 09:30 Dose: 24 mcg/min, 90 mls/hr Documented by: Sodium Chloride (Nacl 0.9% 1000 Ml) 1,000 mls @ 125 mls/hr IV DIRECT MAY Last Admin: 11/04/19 06:43 Dose: 125 mls/hr Documented by: Vasopressin 20 unit/ Sodium (Chloride) 101 mls @ 9.09 mls/hr IV TITR MAY; Protocol Pantoprazole Sodium (Protonix) 40 mg IV BID MAY Sodium Chloride (Sodium Chloride Flush Syringe 10 Ml) 10 ml IV BID MAY Sodium Chloride (Sodium Chloride Flush Syringe 10 Ml) 10 ml IV PRN PRN PRN Reason: LINE FLUSH Review of Systems ROS unobtainable: due to mental status Exam - Vital Signs Vital signs: Vital Signs Pulse BP Pulse Ox 94 H 84/45 97 11/03/19 17:22 11/03/19 17:22 11/03/19 17:22 - General Appearance General appearance: well-developed, appears stated age, obese, intubated, other (NGT, turcios present) EENT: mucous membranes dry, other (pupils fixed and nonreactive) Neck: Present: neck supple, trachea midline Respiratory: Ronchi (scattered bilateral lung arboleda), Other (mechanical breath sounds) Heart: regular, S1S2, no murmurs Gastrointestinal: Present: normal, normoactive bowel sounds, obese. Absent: distended, masses, organomegaly Integumentary: no rash, cool/clammy Neurologic: other (unresponsive, unable to assess) Musculoskeletal: Absent: deformities, cyanosis Psychiatric: other (unresponsive) Results - Lab Results 11/04/19 Unknown 11/04/19 11:20 Most recent lab results ABG pH 7.281 pH Units (7.350-7.450) L 11/04/19 05:15 ABG pCO2 31.2 mm Hg 11/04/19 05:15 ABG pO2 202.2 mm Hg (80.0-90.0) H 11/04/19 05:15 ABG HCO3 14.4 mmol/L (20.0-26.0) L 11/04/19 05:15 ABG O2 Saturation 99.2 % (95.0-99.0) H 11/04/19 05:15 Calcium 8.9 mg/dL (8.4-10.2) 11/04/19 05:30 Assessment and Plan 1. Acute kidney injury: Likely vasomotor WALTER in the setting of persistent hypotension and cardiac arrest. Pt baseline is unknown. Creatinine on admission was 2.2 has now worsened to 4.8. Now on multiple pressors 2/2 persistent hypotension. Has turcios catheter with no urinary output up to point of consultation. Continue IV fluids. Monitor renal function. Renal prognosis is guarded. Avoid nephrotoxic agents. 2. FEN: Mild hypernatremia, mild, monitor. Metabolic acidosis, monitor. Monitor lytes and volume status. 3. S/p Cardiopulmonary arrest: Had multiple episodes of cardiac arrest. Initial arrest was OOH with unknown down time. Cards consulted. 4. Anoxic brain injury: Neuro consulted. 5. Acute hypoxemic respiratory failure: Intubated on vent. Not sedated, unresponsive. Pulmonary following. 6. S/p V. Fib arrest: Cards following. 7. STEMI: Family declined cardiac cath. Awaiting outpatient cardio input as requested by family. Cards following. 8. Acute GI bleed: Heparin drip d/c 2/2 to signs of active bleed. On PPI. GI following. 9. Hypotension: On multiple pressors. Monitor BP closely. 10. H/o CAD s/p stent:
--- NOTE | 2019-11-04 10:08 | Progress Note ---
Assessment and Plan Patient had coffee grounds from his NG tube and dark red blood from his rectal output per nursing overnight, occult blood was positive. Heparin drip was stopped. Patient currently with thin red liquid from the rectal tube and brown output from the NG tube with no significant active bleeding. GI evaluation in progress. Okay to hold heparin gtt from cardiac perspective in setting of GI bleed. Cont conservative cardiac measures as agreed upon by pt's family members given suspected anoxic brain injury and overall poor prognosis. Obtain echo. Recommend neurology consultation per primary team. The patient has been seen in conjunction with Dr. Araya who agrees with the assessment and plan of care. - Patient Problems (1) Cardiopulmonary arrest Current Visit: Yes Status: Acute (2) Ventricular fibrillation Current Visit: Yes Status: Acute (3) Anoxic brain injury Current Visit: Yes Status: Suspected (4) STEMI (ST elevation myocardial infarction) Current Visit: Yes Status: Acute (5) CAD (coronary artery disease) Current Visit: Yes Status: Chronic (6) Stented coronary artery Current Visit: Yes Status: Chronic (7) WALTER (acute kidney injury) Current Visit: Yes Status: Acute (8) GI bleed Current Visit: Yes Status: Acute Subjective Date of service: 11/04/19 Principal diagnosis: cardiac arrest Interval history: pt remains intubated, unresponsive, not sedated. on dopamine and levophed gtt. in ST on tele HR 110s. Objective Last Vital Signs Temp 99.4 F 11/04/19 08:00 Pulse 116 H 11/04/19 09:45 Resp 13 11/04/19 09:45 BP 89/55 11/04/19 09:45 Pulse Ox 92 11/04/19 09:45 - Physical Examination General: Other (intubated, unresponsive, not sedated) Cardiac: Positive: Regular Rhythm, S1/S2 Lungs: Positive: Decreased Breath Sounds, Oxygen, Ventilated Respirations Neuro: Positive: Other (intubated, unresponsive, not sedated) Abdomen: Negative: Tender Skin: Negative: Rash Extremities: Absent: edema - Labs and Meds Cardiac Enzymes 11/03/19 11/04/19 Range/Units 17:58 05:30 AST 883 H (5-40) units/L CK-MB (CK-2) 18.2 H (0.0-4.0) ng/mL Coagulation 11/03/19 Range/Units 17:41 PT 16.3 H (12.2-14.9) Sec. INR 1.30 H (0.87-1.13) APTT 44.1 H (24.2-36.6) Sec. CBC 11/03/19 11/03/19 11/04/19 Range/Units 17:41 17:41 05:30 WBC 6.6 16.2 H (4.5-11.0) K/mm3 RBC 5.58 H 7.04 H (3.65-5.03) M/mm3 Hgb 14.8 18.5 H D (11.8-15.2) gm/dl Hct 50.0 H 58.4 H D (35.5-45.6) % Plt Count 102 L 119 L 191 (140-440) K/mm3 Comprehensive Metabolic Panel 11/03/19 11/04/19 Range/Units 17:58 05:30 Sodium 146 H 145 (137-145) mmol/L Potassium 5.0 4.4 (3.6-5.0) mmol/L Chloride 101.8 101.1 (98-107) mmol/L Carbon Dioxide 18 L 19 L (22-30) mmol/L BUN 16 28 H (9-20) mg/dL Creatinine 2.2 H 4.8 H D (0.8-1.5) mg/dL Glucose 288 H 144 H (75-100) mg/dL Calcium 8.2 L 8.9 (8.4-10.2) mg/dL AST 883 H (5-40) units/L ALT 444 H (7-56) units/L Alkaline Phosphatase 82 (35-129) units/L Total Protein 6.9 (6.3-8.2) g/dL Albumin 4.4 (3.9-5) g/dL - Imaging and Cardiology EKG: report reviewed, image reviewed Echo: pending - Telemetry EKG Rhythm: Sinus Tachycardia
[2019-11-04] MEDS ORDERED: DOPamine/D5W 800 MG/250 ML DRIP IV ONE (11:00)
[2019-11-04] MEDS ORDERED: MAGNESIUM SULFATE 1 GM/2ML (4 MEQ/1ML) INJ ONE (11:00)
[2019-11-04] MEDS ORDERED: CALCIUM CHLORIDE 1,000 MG/10 ML SYRINGE IV ONE (11:00)
[2019-11-04] MEDS ORDERED: DEXTROSE 50% IN WATER (25GM) 50 ML SYRINGE IV ONE (11:00)
[2019-11-04] MEDS ORDERED: AMIODARONE 900 MG/18 ML IV ONE (11:00)
[2019-11-04] MEDS ORDERED: SODIUM BICARB 8.4% 50 MEQ/50 ML SYRINGE IV ONE (11:00)
[2019-11-04] MEDS ORDERED: EPINEPHrine 1 MG/1 ML 8 MG in SODIUM CHLORIDE 0.9% 250ML 242 ML IV SCH (11:00)
[2019-11-04] MEDS ORDERED: EPINEPHrine 1 MG/10 ML SYRINGE ONE (11:00)
--- NOTE | 2019-11-04 11:29 | Event Note ---
Date: 11/04/19 Cardiopulmonary arrest x2 with ROSC See code blue documentation for details ABG, Labs sent. 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 Discussed with primary service
[2019-11-04 11:39] LABS: ABG Base Excess -18.6 mmol/L (-2.0-3.0); ABG HCO3 12.1 mmol/L (20.0-26.0); ABG Methemoglobin 0.1 % (0.0-1.5); ABG Oxygen Saturation 99.5 % (95.0-99.0); ABG PH 7.02 pH Units (7.350-7.450); ABG PO2 390.7 mm Hg (80.0-90.0)
--- NOTE | 2019-11-04 11:42 | XRay Report ---
CHEST 1 VIEW 1120 hours INDICATION: chest pain/recently coded. COMPARISON: Earlier today at 0535 hours FINDINGS: Support devices: Stable and adequate positioning of the endotracheal tube and nasogastric tube. Heart: Within normal limits. Lungs/Pleura: The left lung apex is cut off the [id number]. No infiltrate, pleural fluid or pneumo thorax is detected. Additional findings: None. IMPRESSION: No acute process. No change since earlier today at 0535 hours. Signer Name: Monty Cuevas Jr, MD Signed: 11/04/2019 11:37 AM Workstation Name: [id number]
--- NOTE | 2019-11-04 11:44 | Event Note ---
Date: 11/04/19 Cardiac arrest x4 please see code sheet for details Spoke with and spoke with Dr Arguelles Patient requested for DNR during 4th cardiac arrest Patient was pronounced 11:38 am Cause of : Cardiorespiratory arrest due to STEMI and renal failure
[2019-11-04] MEDS ORDERED: AMIODARONE 900 MG in DEXTROSE 5% IN WATER 482 ML IV NR (12:00)
--- NOTE | 2019-11-04 12:00 | Death Summary ---
Summary - Providers Date of service: 11/04/19 Consults: 11/03/19 18:30 Consult to Physician [CONS] Routine Comment: Consulting Provider: SWAPNIL XIONG Physician Instructions: Reason For Exam: Respiratory Failure/cardiac arrest/stemi 11/04/19 06:43 Consult to Physician [CONS] Routine Comment: Consulting Provider: MARGARITO LARA Physician Instructions: Reason For Exam: GI bleed 11/04/19 08:16 Consult to Physician [CONS] Routine Comment: Consulting Provider: SITA MADRID Physician Instructions: Reason For Exam: eamon 11/04/19 11:11 Consult to Physician [CONS] Routine Comment: Consulting Provider: COLLIN ROCK Physician Instructions: Reason For Exam: anoxic brain injury Attending: CRUZ LENNON - summary Date of admission: 11/03/19 18:30 Significant findings: 69 YO Male with h/o HTN, SC, CAD S/P Stent Placement, HLD presented to the emergency room after he was found lying on the ground by his son. EMS was notified while the family initiated CPR therapy. EMS arrived at scene at 1626 and upon arrival the patient was found to be in V. fib arrest. Patient initiated on ACLS protocol with brief return of perfusing rhythm. Patient was coded multiple times in route to the ER. Patient arrived to the emergency department in V. fib arrest at 1703 with CPR in progress. Patient continued on ACLS protocol with return of perfusing rhythm. Patient then coded two more times in the ER with return of perfusing rhythm each time. Patient found to have evidence of ST elevation SC, as well as acute respiratory failure which resulted in cardiopulmonary arrest. Patient also found to have acute kidney injury, and metabolic acidosis. Upon neurologic exam patient was found to have clinical findings consistent with anoxic brain injury. The cardiac cath team was called in. Patient elects not to have cardiac catheterization and requests only supportive care. The cardiac cath team was dismissed. The patient was admitted to ICU. Critical care team consult placed. Patient was started on a heparin drip, multiple prossors. Patient then noted coffee grounds from his NG tube and dark red blood from his rectal output per nursing overnight, occult blood was positive. Heparin drip was stopped. Today he again had cardiac arrest total 4 times. 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 Patient was pronounced 11:38 am. Cause of : Cardiorespiratory arrest due to STEMI, cardiogenic shock, renal failure, severe respiratory and metabolic acidosis.
[2019-11-04 13:18] LABS: Mean Corpuscular HGB Conc 30 % (32-34); Mean Corpuscular Volume 87 fl (84-94); Platelet Count 113 K/mm3 (140-440); Red Blood Count 5.22 M/mm3 (3.65-5.03); Red Cell Distribution Width 17.6 % (13.2-15.2)
[2019-11-04 13:20] VITALS: BP 222/123
[2019-11-04 13:23] LABS: Hematocrit 45.4 % (35.5-45.6); Hemoglobin 13.7 gm/dl (11.8-15.2)
[2019-11-04 13:28] LABS: Albumin 2.3 g/dL (3.9-5); Calcium 9.3 mg/dL (8.4-10.2)
[2019-11-04 14:13] LABS: Band Neutrophils # (Manual) 0.3 K/mm3; Basophils % (Manual) 0 % (0.0-1.8); Total Cells Counted 100
[2019-11-04 14:14] LABS: Anisocytosis 1+; Large Platelets Few; Platelet Estimate Consistent w Auto
== END 2019-11-04 14:21 | DRG 208 ==
LOC: ED 17:06 → CC1 18:30
PROVIDERS: ADMIT Internal Medicine; ATTEND Internal Medicine
PROC: 0BH17EZ Insertion of Endotracheal Airway into Trachea, Via Natural or Artificial Opening (ICD-10-PCS; principal; 2019-11-03)
PROC: 5A1935Z Respiratory Ventilation, Less than 24 Consecutive Hours (ICD-10-PCS; 2019-11-03)
PROC: 4A033R1 Measurement of Arterial Saturation, Peripheral, Percutaneous Approach (ICD-10-PCS; 2019-11-03)
PROC: 5A12012 Performance of Cardiac Output, Single, Manual (ICD-10-PCS; 2019-11-03)
PROC: 06HY33Z Insertion of Infusion Device into Lower Vein, Percutaneous Approach (ICD-10-PCS; 2019-11-03)
DX: J96.01 Acute respiratory failure with hypoxia (principal); I21.3 ST elevation (STEMI) myocardial infarction of unspecified site; N17.0 Acute kidney failure with tubular necrosis; G93.1 Anoxic brain damage, not elsewhere classified; E87.2 Acidosis; K92.2 Gastrointestinal hemorrhage, unspecified; E87.0 Hyperosmolality and hypernatremia; I46.9 Cardiac arrest, cause unspecified; I10 Essential (primary) hypertension; I25.10 Atherosclerotic heart disease of native coronary artery without angina pectoris; Z53.8 Procedure and treatment not carried out for other reasons; I95.9 Hypotension, unspecified; Z95.5 Presence of coronary angioplasty implant and graft; Z82.49 Family history of ischemic heart disease and other diseases of the circulatory system
CPT/HCPCS: 36415; 36600; 71045; 74018; 80048; 80053; 82140; 82270; 82550; 82553; 82803; 82962; 83880; 84484; 85007; 85014; 85018; 85025; 85027; 85049; 85520; 85610; 85730; 86850; 86900; 86901; 87070; 87205; 93005; 94002; 94003; G0378; C9113; J0171; J0282; J1265; J1644; J2001; J2250; J3010; J3475; J7030; J7050; J7060